=== PATIENT | female | born 1975 | race Caucasian/White ===

== ENCOUNTER 2016-08-30 18:18 | Emergency (ER) | payer BC, OTHER ==
[2016-08-30 19:39] VITALS: BP 134/86
--- NOTE | 2016-08-30 20:06 | UC ---
Skin Complaint HPI - History of Current Complaint Chief Complaint: UCSkin Time Seen by Provider: 08/30/16 19:59 Stated Complaint: RASH Hx Last Menstrual Period: 07/11/14 - Allergy/Home Medications Allergies/Adverse Reactions: Allergies Allergy/AdvReac Type Severity Reaction Status Date / Time No Known Allergies Allergy Verified 08/30/16 19:39 Home Medications: Home Medications Loratadine [Claritin 10 MG CAP] 1 tab PO DAILY PRN 08/30/16 [History Confirmed 08/30/16] PMH/Surg Hx/FS Hx/Imm Hx Endocrine History Of: Denies: Diabetes Cardiovascular History Of: Denies: Hypertension - DURING , NO PROBLEMS SINCE 1999, Pacemaker/ ICD Respiratory History Of: Reports: Asthma - EXERCISE INDUCED, HAS INHALER GI/ History Of: Denies: Renal Disease - Surgical History Surgical History: Yes Surgery Procedure, Year, and Place: 2002 BILATERAL TUBAL LIGATION [facility] CARPAL TUNNEL SURGERY RIGHT 09/2013. HYSTERECTOMY 12/18/14 [place] - Family History Known Family History: Positive: None, Hypertension, Diabetes - Social History Alcohol Use: Rare Alcohol Amount: 2-5 DRINKS/WEEK Substance Use Type: None Smoking Status (MU): Light Every Day Tobacco Smoker Type: Cigarettes Amount Used/How Often: 2 CIG/DAY Have You Smoked in the Last Year: No When Did the Patient Quit Smoking/Using Tobacco: 07/2012 Physical Exam Vital Signs: Initial Vital Signs Temp 97.5 F 08/30/16 19:34 Pulse 89 08/30/16 19:34 Resp 18 08/30/16 19:34 BP 134/86 08/30/16 19:34 Pulse Ox 99 08/30/16 19:34
[2016-08-30] MEDS ORDERED: predniSONE TAB* 20 MG PO ONE (20:10)
== END 2016-08-30 20:33 | disposition home or self-care (01) ==
LOC: UCEAST 18:18
DX: R21 Rash and other nonspecific skin eruption (principal); F17.210 Nicotine dependence, cigarettes, uncomplicated; J45.990 Exercise induced bronchospasm
CPT/HCPCS: 99212; G0463; J7512

== ENCOUNTER → 2017-03-27 19:19 | Emergency (ER) | payer MEDICAID, OTHER ==
[~2017-03-27 19:19] MED LIST: Acyclovir* 200 MG CAP ONE; Acyclovir* 200 MG CAP PO ONE; Acyclovir* 400 MG TAB PO ONE; DOXYcycline CAP(*) 100 MG PO ONE; predniSONE TAB* 20 MG ONE; predniSONE TAB* 20 MG PO ONE
[2017-03-27 20:00] VITALS: BP 152/91
--- NOTE | 2017-03-27 20:08 | UC ---
Skin Complaint HPI - HPI Summary HPI Summary: 41 YEAR OLD FEMALE PRESENTS WITH FACIAL RASH AND VESICULAR LESION ON HER LEFT BACK/STOMACH. - History of Current Complaint Chief Complaint: UCSkin Time Seen by Provider: 03/27/17 20:01 Stated Complaint: RASH Hx Obtained From: Patient Hx Last Menstrual Period: 07/11/14 Onset/Duration: Sudden Onset Skin Exposure Onset/Duration: Minutes Ago Onset Severity: Moderate Current Severity: Moderate Location: Discrete Aggravating Factor(s): Wind Alleviating Factor(s): Other - STEROIDS - Allergy/Home Medications Allergies/Adverse Reactions: Allergies Allergy/AdvReac Type Severity Reaction Status Date / Time No Known Allergies Allergy Verified 03/27/17 20:00 Review of Systems Constitutional: Negative Skin: Negative Eyes: Negative ENT: Negative Respiratory: Negative Cardiovascular: Negative Gastrointestinal: Negative Genitourinary: Negative Motor: Negative Neurovascular: Negative Musculoskeletal: Negative Neurological: Negative Psychological: Negative All Other Systems Reviewed And Are Negative: Yes PMH/Surg Hx/FS Hx/Imm Hx Previously Healthy: Yes - Surgical History Surgical History: Yes Surgery Procedure, Year, and Place: 2002 BILATERAL TUBAL LIGATION [place], CARPAL TUNNEL SURGERY RIGHT 09/2013. HYSTERECTOMY 12/18/14 [place] - Family History Known Family History: Positive: None, Hypertension, Diabetes - Social History Alcohol Use: Rare Alcohol Amount: 2-5 DRINKS/WEEK Substance Use Type: None Smoking Status (MU): Light Every Day Tobacco Smoker Type: Cigarettes Amount Used/How Often: 2 CIG/DAY Have You Smoked in the Last Year: No When Did the Patient Quit Smoking/Using Tobacco: 07/2012 - Immunization History Most Recent Influenza Vaccination: n/a Physical Exam Triage Information Reviewed: Yes Vital Signs: Initial Vital Signs Temp 37.2 C 03/27/17 19:55 Pulse 109 03/27/17 19:55 Resp 16 03/27/17 19:55 BP 152/91 03/27/17 19:55 Pulse Ox 99 03/27/17 19:55 Vital Signs Reviewed: Yes Eye Exam: Normal ENT Exam: Normal Dental Exam: Normal Neck exam: Normal Neck: Positive: 1 Respiratory Exam: Normal Cardiovascular Exam: Normal Abdominal Exam: Normal Musculoskeletal Exam: Normal Neurological Exam: Normal Psychological Exam: Normal Skin: Positive: rashes - FACE, significant lesion(s) - LEFT SIDE OF TRUNK/BACK Course/Dx - Diagnoses Provider Diagnoses: FACIAL RASH. VESICULAR LESIONS LEFT SIDE OF TRUNK/BACK Discharge - Discharge Plan Condition: Stable Disposition: HOME Prescriptions: Acyclovir [Zovirax 800 MG] 800 mg PO .FIVE TIMES A DAY #35 tab Capsaicin 0.025% CREAM* [Zostrix 0.025% CREAM*] 1 applic TOPICAL BID PRN #1 tu PRN Reason: Pain DOXYcycline CAP(*) [DOXYcycline 100MG CAP(*)] 100 mg PO BID #20 cap Mupirocin 2% OINT* [Bactroban 2 % Oint*] 1 applic TOPICAL BID #2 tube predniSONE TAB* [Deltasone TAB*] 40 mg PO DAILY #10 tab Patient Education Materials: Shingles (ED), Rosacea (ED) Referrals: Ashley MOTLEY,Melissa [Primary Care Provider] - Francoise Guan [Medical Doctor] -
== END | disposition home or self-care (01) ==
LOC: UCEAST 19:19
DX: R21 Rash and other nonspecific skin eruption (principal); I99.8 Other disorder of circulatory system; Z72.89 Other problems related to lifestyle; Z87.891 Personal history of nicotine dependence
CPT/HCPCS: 99212; A9270-GY; G0463; J7512

== ENCOUNTER 2017-03-30 18:50 | Emergency (ER) | payer MEDICAID ==
[2017-03-30 19:00] VITALS: BP 123/68
--- NOTE | 2017-03-30 20:09 | UC ---
Skin Complaint HPI - HPI Summary HPI Summary: Pt presents with a recent dx of shingles to her left lower side and back. She is here today for re-eval and for a note to return to work tomorrow. She has been feeling fine and offers no complaints. Area has not been draining and pain has been very minimal and is well controlled. Denies fever, chills, SOB, chest pain, abdominal pain, N/V/D/C - History of Current Complaint Chief Complaint: UCGeneralIllness Time Seen by Provider: 03/30/17 20:05 Stated Complaint: RECHECK SKIN COMPLAINT Hx Obtained From: Patient Hx Last Menstrual Period: 07/11/14 ?: No Onset/Duration: Gradual Onset Skin Exposure Onset/Duration: Days Ago - Allergy/Home Medications Allergies/Adverse Reactions: Allergies Allergy/AdvReac Type Severity Reaction Status Date / Time No Known Allergies Allergy Verified 03/30/17 19:01 Review of Systems Constitutional: Negative Skin: Other - Shingles left lower back and side Eyes: Negative Respiratory: Negative Cardiovascular: Negative Gastrointestinal: Negative All Other Systems Reviewed And Are Negative: Yes PMH/Surg Hx/FS Hx/Imm Hx Previously Healthy: Yes Psychological History: Anxiety, Depression - Surgical History Surgical History: Yes Surgery Procedure, Year, and Place: 2002 BILATERAL TUBAL LIGATION [place], CARPAL TUNNEL SURGERY RIGHT 09/2013. HYSTERECTOMY 12/18/14 [place] - Family History Known Family History: Positive: None, Hypertension, Diabetes - Social History Occupation: Employed Full-time Lives: With Family Alcohol Use: Rare Alcohol Amount: 2-5 DRINKS/WEEK Substance Use Type: None Smoking Status (MU): Former Smoker Type: Cigarettes Amount Used/How Often: 2 CIG/DAY Have You Smoked in the Last Year: No When Did the Patient Quit Smoking/Using Tobacco: 07/2012 - Immunization History Most Recent Influenza Vaccination: n/a Physical Exam Triage Information Reviewed: Yes Appearance: Well-Appearing, No Pain Distress, Well-Nourished Vital Signs: Initial Vital Signs Temp 99.0 F 03/30/17 18:58 Pulse 84 03/30/17 18:58 Resp 12 03/30/17 18:58 BP 123/68 03/30/17 18:58 Pulse Ox 100 03/30/17 18:58 Vital Signs Reviewed: Yes Neck: Positive: Supple, Nontender, No Lymphadenopathy Respiratory: Positive: Chest non-tender, Lungs clear, Normal breath sounds, No respiratory distress, No accessory muscle use Cardiovascular: Positive: RRR, No Murmur, Pulses Normal Neurological: Positive: Alert Psychological: Positive: Age Appropriate Behavior Skin: Positive: Other - There are crusted over two clusters of <3mm in diameter lesions on the left lower back and hip. Mild erythema surrounding each cluster. No edema, streaking, or drainage. Consistent with healed zoster infection Course/Dx - Course Course Of Treatment: Appears all lesions have crusted and are healing well. Advised to still keep area covered until fully gone. May return to work tomorrow. - Diagnoses Provider Diagnoses: Varicella Zoster left lower back Discharge - Discharge Plan Condition: Stable Disposition: HOME Patient Education Materials: Shingles (ED) Forms: *Gen. Provider Communication Referrals: Melissa Guillermo RN [Primary Care Provider] - Additional Instructions: If you develop a fever, SOB, chest pain, new or worsening symptoms - please call your PCP or go to the ED.
== END 2017-03-30 20:20 | disposition home or self-care (01) ==
LOC: UCEAST 18:50
DX: B01.9 Varicella without complication (principal); B02.8 Zoster with other complications
CPT/HCPCS: 99211; G0463